=== PATIENT | male | born 1965 | race Two or more races ===

== ENCOUNTER 2017-10-28 17:54 | Emergency (ER) | payer OTHER ==
[2017-10-28] MEDS ORDERED: Sodium Chloride 0.9% 1,000 ML IV ONE ×2 (18:48→18:50)
[2017-10-28] MEDS ORDERED: methylPREDNISolone Sodium Succinate 125 MG/2 ML SDV IVPUSH ONE (18:48)
[2017-10-28] MEDS ORDERED: EPINEPHrine 1 MG/ML SDV IM ONE (18:48)
[2017-10-28] MEDS ORDERED: Famotidine 20 MG/2 ML SDV IVPUSH ONE (18:48)
[2017-10-28] MEDS ORDERED: diphenhydrAMINE 50 MG/ML SDV IVPUSH ONE (18:48)
--- NOTE | 2017-10-28 18:49 | EDM.PDOC ---
ED HPI GENERAL MEDICAL PROBLEM - General Chief Complaint: Allergic Reaction Stated Complaint: SWOLLEN FACE Time Seen by Provider: 10/28/17 18:49 Source of Information: Reports: Patient History Limitations: Reports: No Limitations - History of Present Illness INITIAL COMMENTS - FREE TEXT/NARRATIVE: PT comes to the ED today with complaints of facial swelling. Since Saturday the patient has had waxing and waining lip eye lid cheek tongue swelling. This morning his lips were very swollen and difficult to swallow. He does have an epi pen for this from the past a long time ago although did not use it today. He has been taking benadryl with some improvement. No new medications, no exposure to other detergents or foods. NO blood medications now or in the past. He has had multiple episodes in the the past of similar episode. He developed swelling on his extremities that pops up in multiple different areas throughout his body. Although the last couple of times it is primarily been in his face cheek and tongue. He has been prescribed an EpiPen but he has never used before. He has never seen an jet blade polisher. Eye Pain Score (Numeric/FACES): 3 Past Medical History - Past Surgical History HEENT Surgical History: Reports: Other (See Below) Other HEENT Surgeries/Procedures: nose surgery GI Surgical History: Reports: Cholecystectomy Musculoskeletal Surgical History: Reports: Arthroscopic Knee Social & Family History - Tobacco Use Smoking Status *Q: Never Smoker - Alcohol Use Days Per Week of Alcohol Use: 2 Number of Drinks Per Day: 3 Total Drinks Per Week: 6 - Recreational Drug Use Recreational Drug Use: No ED ROS ALLERGIC REACTION - Review of Systems Review Of Systems: ROS reveals no pertinent complaints other than HPI. ED EXAM GENERAL NO PERIP PULSE - Physical Exam Exam: See Below Text/Narrative:: NO increased WOB no stridor able to speak in full sentences. Exam Limited By: No Limitations General Appearance: Alert, WD/WN Eye Exam: Bilateral Eye: EOMI, PERRL, Other (Swelling of the upper and lower lids bilaterally no erythema more medial canthus than lateral bilaterally. ) Ears: Normal External Exam, Normal Canal, Hearing Grossly Normal, Normal TMs Nose: Normal Inspection. No: Nasal Flaring Throat/Mouth: Normal Inspection, Normal Lips, Normal Teeth, Normal Gums, Normal Oropharynx, Normal Voice, No Airway Compromise. No: Dysphagia, Perioral Cyanosis Head: Facial Swelling (Bridge of nose eye lids and cheeks. No swelling of the tongue or posterior pharynx. ) Neck: Normal Inspection, Supple, Non-Tender. No: Lymphadenopathy (L), Lymphadenopathy (R) Respiratory/Chest: No Respiratory Distress, Lungs Clear, Normal Breath Sounds, No Accessory Muscle Use Cardiovascular: Normal Peripheral Pulses, Regular Rate, Rhythm GI/Abdominal: Normal Bowel Sounds, Soft (Male) Exam: Deferred Rectal (Males) Exam: Deferred Back Exam: Normal Inspection Extremities: Normal Inspection, Normal Range of Motion, Non-Tender, No Pedal Edema, Normal Capillary Refill. No: Pedal Edema, Joint Swelling, Limited Range of Motion, Mottled, Pallor, Redness Neurological: Alert, Oriented, Normal Cognition, No Motor/Sensory Deficits Psychiatric: Normal Affect, Normal Mood Skin Exam: Warm, Dry, Intact, Normal Color, No Rash, Other (Swelling of the face as described previously. ) Course - Vital Signs Last Recorded V/S: Last Vital Signs Temp 37.3 C 10/28/17 18:34 Pulse 83 10/28/17 18:34 Resp 16 10/28/17 18:34 BP 135/83 10/28/17 18:34 Pulse Ox 100 10/28/17 18:34 - Orders/Labs/Meds Meds: Medications Discontinued Medications Generic Name Dose Route Start Last Admin Trade Name Aixa PRN Reason Stop Dose Admin Diphenhydramine HCl 50 mg 10/28/17 18:48 10/28/17 18:56 Benadryl IVPUSH 10/28/17 18:49 50 mg ONETIME ONE Administration Epinephrine HCl 0.3 mg 10/28/17 18:48 10/28/17 19:05 Adrenalin IM 10/28/17 18:49 0.3 mg ONETIME ONE Administration Famotidine 20 mg 10/28/17 18:48 10/28/17 18:58 Pepcid IVPUSH 10/28/17 18:49 20 mg ONETIME ONE Administration Sodium Chloride 1,000 mls @ 1,000 mls/hr 10/28/17 18:48 10/28/17 18:53 Normal Saline IV 10/28/17 19:47 1,000 mls/hr .BOLUS ONE Administration Sodium Chloride 1,000 mls @ 1,000 mls/hr 10/28/17 18:50 10/28/17 19:08 Normal Saline IV 10/28/17 19:49 Not Given .BOLUS ONE Methylprednisolone Sodium Succinate 125 mg 10/28/17 18:48 10/28/17 18:54 Solu-Medrol IVPUSH 10/28/17 18:49 125 mg ONETIME ONE Administration - Re-Assessments/Exams Free Text/Narrative Re-Assessment/Exam: 10/28/17 19:12 Viewing the pictures on the patients phone from this morning his lips were very swollen and red almost touching his nose with tongue swelling as well. He appears much improved already on his own. Although will still treat aggressively. 10/28/17 21:27 the patient was treated with IV Benadryl Solu-Medrol Zantac and I am epinephrine. He was monitored for a total of 3-1/2 hours in the emergency department. The swelling on his cheeks eyes and nose improved approximately 50% . He had no increased shortness of breath or difficulty breathing or wheezing.I initially had considered giving him some fresh frozen plasma due to his recurrent angioedema although the research that I found this is primarily used for angiotensin inhibitor induced angioedema or patients with severe oropharynx swelling tracheal swelling respiratory distress and intubation. This patient has improved on his own already at home as well as the treatment in the emergency department. I did spend a rather extended period of time explaining to him that it is vitally important for him to keep epinephrine pens with him at all times and once the swelling starts that he uses 1 and is evaluated in the emergency department as this can slowly get worse and worse as a recurs. He already has a set up time to have some allergy testing and other follow-upat home next week in [place] Departure - Departure Time of Disposition: 21:20 Disposition: Home, Self-Care 01 Clinical Impression: Angioedema Qualifiers: Encounter type: subsequent encounter Qualified Code(s): T78.3XXD - Angioneurotic edema, subsequent encounter - Discharge Information Instructions: Angioedema, [id number] Forms: ED Department Discharge Additional Instructions: Next time this happens use your EPI Pen right away and be evaluated in the ED at that time. I will give you a refill on your epi pen as well. Have multiple and always have them with you. Benadryl as needed for itching and flushing caution sedation. Zyrtec, Vonnie or Xyzal daily for symptoms as well does not cause drowsiness. All above are OTC. Prednisone 60mg by mouth every day for the next 5 days. RX given to the patient. REturn to the ED if new or worsening symptoms. Keep appointment for allergy testing next week. Follow up with primary care provider in the next 4-6 days if not improving sooner if worse. - Assessment/Plan Assessment:: Idiopathic Angioedema Plan: Next time this happens use your EPI Pen right away and be evaluated in the ED at that time. I will give you a refill on your epi pen as well. Have multiple and always have them with you. Benadryl as needed for itching and flushing caution sedation. Zyrtec, Vonnie or Xyzal daily for symptoms as well does not cause drowsiness. All above are OTC. Prednisone 60mg by mouth every day for the next 5 days. RX given to the patient. REturn to the ED if new or worsening symptoms. Keep appointment for allergy testing next week. Follow up with primary care provider in the next 4-6 days if not improving sooner if worse.
== END 2017-10-28 21:21 | disposition home or self-care (01) ==
LOC: DL.ED 17:54
DX: T78.3XXA Angioneurotic edema, initial encounter (principal)
CPT/HCPCS: 96361; 96372; 96374; 96375; 99283; 99284; J0171; J1200; J2930; J3490; J7030